=== PATIENT | male | born 1970 | race Caucasian/White ===

== ENCOUNTER 2017-11-02 09:38 | Outpatient (RCR) | payer OTHER ==
[~2017-11-02] VITALS: Ht 172.7 cm; Wt 99.8 kg
--- NOTE | 2017-11-05 15:26 | Medical Nutrition Therapy ---
Nutrition Anthropometrics Height (Inches): 68 (stated) Weight (Pounds): 220 (stated) Fritz Nutrition Score: Fritz Nutrition Risk Score: Dietary Referral Nutrition Risk Factors: Nutrition Risk Comment: Nutrition/Food History Breakfast: protein bars or starbucks setswana with amanda latte and reg melissa Lunch: burger, or chicken sand, diet pop Dinner: 12 wings, diet dosa, Mcmuffin and hashbrowns Snacks: 2 bottles reg pop in 3 weeks Nutritional Education Nutrition Education Topic: Diabetic Nutrition Learning Readiness: Interested Teaching Methods: Discussion, Handout, Demonstration Response to Teaching: Verbalize understanding Teaching Recipient: Patient Nutrition Counseling: pt states eats out usually at fast foods most days, especially for lunch. Has been cutting back and cutting out most soda since dx. Wt is down 6# from Dr office. Pt would like to continue wt loss. Reviewed glycemic response to CHO. Discussed high GI foods pt is eating and encourage higher fiber intake. Pt is doing 35 jumping jacks at work. Recommend include a cardio. Encourged pt to walk dog. Provided meal plan of 45gm CHO/meal to help with wt loss. Enouraged pt to use jeromy to check on CHO of restaurant foods. Set up behavioual goal of increased exercise and wt loss. Set up support plan. Pt will f/u with [facility] classes in November. Nutrition Monitoring & Eval RD Patient Assessment Time: [address] Assessment Type: RD Education Nutritional Comment: Provided 75 minutes diabetes education focusing on nutrition, behavioural goals and support plan Copies To Copies to: TAWNYA MARCIAL BETH Nov 02, 2017 14:53
== END 2017-12-07 ==
LOC: DIET 09:38
PROVIDERS: ATTEND Nurse Practitioner Family
DX: Z71.3 Dietary counseling and surveillance (principal); E11.9 Type 2 diabetes mellitus without complications; E78.2 Mixed hyperlipidemia
CPT/HCPCS: G0108 ×2

== ENCOUNTER 2017-12-09 08:00 | Outpatient (RCR) | payer OTHER | END 2018-01-13 | LOC: DIET 08:00 | PROVIDERS: ATTEND Nurse Practitioner Family | DX: E11.9 Type 2 diabetes mellitus without complications (principal); E78.2 Mixed hyperlipidemia | CPT/HCPCS: G0109 ==

== ENCOUNTER 2018-10-17 09:10 | Emergency (ER) | payer OTHER ==
[2018-10-17] MEDS ORDERED: PANT40TA65 (09:21)
[2018-10-17] MEDS ORDERED: SUMA100T33 (09:21)
[2018-10-17] MEDS ORDERED: RIVA20TA (09:21)
[2018-10-17] MEDS ORDERED: VENL37.594 PO (09:21)
[2018-10-17] MEDS ORDERED: HYDR-2966 (09:21)
[2018-10-17] MEDS ORDERED: VENL150C3 (09:21)
[2018-10-17] MEDS ORDERED: METO100T20 (09:21)
--- NOTE | 2018-10-17 09:31 | ER Report ---
History and Physical Time Seen By MD: 09:32 Hx. of Stated Complaint: 0800 PT FELL ON ICE AND 15 MIN AGO NOTED LARGE AREA OF SWELLING UNDER KNEE (GODFREY COLON MD) Time Seen By MD: 09:45 (NEEL COLON MD) HPI/ROS CHIEF COMPLAINT: Fall, leg pain HISTORY OF PRESENT ILLNESS: [Patient is 48-year-old male who is on xarelto for history of DVT. He presents after fall onto left lee. He notes large left lee swelling that began soon after fall and presents due to concern for pain and swelling. He has been able to ambulate, denies distal pain, paresthesias, weakness. No other injuries with fall. REVIEW OF SYSTEMS: Constitutional: No fever, no chills. Eyes: No discharge. ENT: No sore throat. Cardiovascular: No chest pain, no palpitations. Respiratory: No cough, no shortness of breath. Gastrointestinal: No abdominal pain, no vomiting Musculoskeletal: No back pain. no other injuries Skin: no lacerations Neurological: No headache. Remainder of the 14 system rev: Yes (NEEL COLON MD) Allergies: Coded Allergies: No Known Drug Allergies (Unverified , 10/17/18) Home Meds Reported Medications Sumatriptan Succinate (SUMATRIPTAN SUCCINATE) 100 Mg Tablet 10/17/18 Pantoprazole Sodium (PANTOPRAZOLE SODIUM) 40 Mg Tablet.dr 10/17/18 Metoprolol Succinate (METOPROLOL SUCCINATE) 100 Mg Tab.er.24h 10/17/18 Hydrochlorothiazide (HYDROCHLOROTHIAZIDE) 25 Mg Tablet 10/17/18 Rivaroxaban 20 Mg (XARELTO 20 MG) 20 Mg Tablet 10/17/18 Venlafaxine Hcl (VENLAFAXINE HCL ER) 150 Mg Cap.er.24h 10/17/18 Venlafaxine Hcl (EFFEXOR XR) 37.5 Mg Cap.er.24h, PO QDAY 10/17/18 Reviewed Nurses Notes: Yes (NEEL COLON MD) Hx Substance Use Disorder: No Hx Alcohol Use: Yes (OCC) (GODFREY COLON MD) Constitutional Vital Sign - Last 24 Hours 10/17/18 10/17/18 10/17/18 10/17/18 09:10 09:16 09:16 09:25 Temp 97.8 Pulse ??? 74 83 Resp 18 B/P (MAP) 147/87 (107) 147/87 Pulse Ox 91 91 O2 Delivery Room Air 10/17/18 10/17/18 10/17/18 10/17/18 09:40 09:55 10:00 10:10 Pulse 81 87 87 B/P (MAP) 121/83 (96) Pulse Ox 88 88 87 10/17/18 10/17/18 10/17/18 10/17/18 10:25 10:30 10:35 10:50 Pulse 89 ? B/P (MAP) 120/78 (92) Pulse Ox 89 10/17/18 10/17/18 10/17/18 10/17/18 11:00 11:05 11:20 11:30 Pulse ? B/P (MAP) ???/??? (1665) ???/??? (1665) 10/17/18 10/17/18 10/17/18 10/17/18 11:35 11:50 12:00 12:05 Pulse ??? 82 87 B/P (MAP) 111/87 (95) Pulse Ox 89 89 10/17/18 10/17/18 12:20 12:30 Pulse 88 B/P (MAP) 116/88 (97) Pulse Ox 90 (NEEL COLON MD) Physical Exam General Appearance: The patient is alert, has no immediate need for airway protection and no signs of toxicity. [ ] Eyes: Pupils equal and round no pallor or injection. Respiratory: There are no retractions, lungs are clear to auscultation. Cardiovascular: Regular rate and rhythm. Neurological: alert, oriented, nad Skin: Warm and dry, no rashes. Musculoskeletal: Extremities are nontender, nonswollen and have full range of motion. with execption of left ant lateral lee with [id number] edema. Ant/lat compartments soft DIFFERENTIAL DIAGNOSIS: After history and physical exam differential diagnosis was considered for compartment syndrome, fx, arterial bleed, or other complication. (NEEL COLON MD) Medical Decision Making Data Points Result Diagram: 10/17/18 1146 10/17/18 1146 Laboratory Hematology Test 10/17/18 11:46 Red Blood Count 5.49 M/uL (4.00-5.60) Mean Corpuscular Volume 88.0 fL (80.0-96.0) Mean Corpuscular Hemoglobin 30.2 pg (26.0-33.0) Mean Corpuscular Hemoglobin Concent 34.3 g/dL (32.0-36.0) Red Cell Distribution Width 13.8 % (11.5-14.5) Mean Platelet Volume 7.4 fL (7.2-11.1) Neutrophils (%) (Auto) 66.4 % (39.4-72.5) Lymphocytes (%) (Auto) 25.0 % (17.6-49.6) Monocytes (%) (Auto) 6.2 % (4.1-12.4) Eosinophils (%) (Auto) 1.4 % (0.4-6.7) Basophils (%) (Auto) 1.0 % (0.3-1.4) Nucleated RBC Relative Count (auto) 0.1 /100WBC Neutrophils # (Auto) 5.3 K/uL (2.0-7.4) Lymphocytes # (Auto) 2.0 K/uL (1.3-3.6) Monocytes # (Auto) 0.5 K/uL (0.3-1.0) Eosinophils # (Auto) 0.1 K/uL (0.0-0.5) Basophils # (Auto) 0.1 K/uL (0.0-0.1) Nucleated RBC Absolute Count (auto) 0.01 K/uL Peripheral Blood Smear No Y/N Sodium Level 139 mmol/L (137-145) Potassium Level 3.8 mmol/L (3.5-5.0) Chloride Level 103 mmol/L (98-107) Carbon Dioxide Level 28 mmol/L (22-30) Blood Urea Nitrogen 15 mg/dl (9-21) Creatinine 0.90 mg/dl (0.66-1.25) Glomerular Filtration Rate Calc > 60.0 Random Glucose 125 mg/dl (75-110) Calcium Level 9.1 mg/dl (8.4-10.2) Chemistry Test 10/17/18 11:46 White Blood Count 8.0 k/uL (4.5-11.0) Red Blood Count 5.49 M/uL (4.00-5.60) Hemoglobin 16.6 g/dL (14.0-18.0) Hematocrit 48.3 % (42.0-52.0) Mean Corpuscular Volume 88.0 fL (80.0-96.0) Mean Corpuscular Hemoglobin 30.2 pg (26.0-33.0) Mean Corpuscular Hemoglobin Concent 34.3 g/dL (32.0-36.0) Red Cell Distribution Width 13.8 % (11.5-14.5) Platelet Count 292 K/uL (150-450) Mean Platelet Volume 7.4 fL (7.2-11.1) Neutrophils (%) (Auto) 66.4 % (39.4-72.5) Lymphocytes (%) (Auto) 25.0 % (17.6-49.6) Monocytes (%) (Auto) 6.2 % (4.1-12.4) Eosinophils (%) (Auto) 1.4 % (0.4-6.7) Basophils (%) (Auto) 1.0 % (0.3-1.4) Nucleated RBC Relative Count (auto) 0.1 /100WBC Neutrophils # (Auto) 5.3 K/uL (2.0-7.4) Lymphocytes # (Auto) 2.0 K/uL (1.3-3.6) Monocytes # (Auto) 0.5 K/uL (0.3-1.0) Eosinophils # (Auto) 0.1 K/uL (0.0-0.5) Basophils # (Auto) 0.1 K/uL (0.0-0.1) Nucleated RBC Absolute Count (auto) 0.01 K/uL Peripheral Blood Smear No Y/N Glomerular Filtration Rate Calc > 60.0 Calcium Level 9.1 mg/dl (8.4-10.2) (NEEL COLON MD) ED Course/Re-evaluation ED Course Patient presents with hematoma left anterior lateral lee after direct fall early this morning (0800). Hematoma initially relatively tense, therefore blood was drawn for H and H evaluation and patient monitored in ED. Ultimately hematoma significantly improved at reevaluation at 1300. At this point there is no sign of compartment syndrome or ongoing arterial bleed. Patient is very comfortable to discharge and ambulates without discomfort. We'll discharge with strict return precautions. I recommended holding today's xarelto but continuing tomorrow. Decision to Disposition Date: Oct 17, 2018 Decision to Disposition Time: 12:56 (NEEL COLON MD) Depart Departure Latest Vital Signs Vital Signs Date Time Temp Pulse Resp B/P (MAP) Pulse Ox O2 Delivery O2 Flow Rate FiO2 10/17/18 12:30 116/88 (97) 10/17/18 12:20 88 90 10/17/18 09:16 97.8 18 Room Air (NEEL COLON MD) Impression: Primary Impression: Hematoma Condition: Improved Disposition: HOME OR SELF-CARE Referrals: TAWNYA MARCIALP (PCP) Patient Instructions: Hematoma (ED) Additional Instructions: As we discussed, please return for new significant pain, especially with moving ankle or knee, weakness, new numbness in foot, or any other concerns. GODFREY COLON MD Oct 17, 2018 09:31 NEEL COLON MD Oct 17, 2018 12:57
--- NOTE | 2018-10-17 10:47 | RADIOLOGY IMAGING REPORT ---
FACILITY: [facility] [place] PATIENT NAME: Elijah Crespo : 1970 MR: [id number] V: [id number] EXAM DATE: ORDERING PHYSICIAN: GODFREY COLON TECHNOLOGIST: Location: [facility] Patient: Elijah Crespo : 1970 Visit/Account:[id number] Date of Sevice: 10/17/2018 Exam type: KNEE 3 VIEW LEFT History: fall onto knee on Xarelto Comparison: None. Findings: There is extensive soft tissue prominence surrounding the left lower leg just below the level of the knee. This could be related to hemorrhage given the clinical history. There is no evidence of acute fracture or dislocation involving the left knee. There are mild degenerative changes at the medial compartment IMPRESSION: 1. Eccentric soft tissue prominence surrounding the left lower leg just below the level of the knee which could be related to hemorrhage given the clinical history. No underlying fracture seen Report Dictated By: Ashlee Stewart MD at 10/17/2018 10:19 AM Report E-Signed By: Ashlee Stewart MD at 10/17/2018 10:41 AM WSN:[id number]
[2018-10-17 11:54] LABS: PLATELET COUNT, AUTOMATED 292 K/uL (150-450)
[2018-10-17 12:30] VITALS: BP 116/88
== END 2018-10-17 13:07 | disposition home or self-care (01) ==
LOC: ER 09:35
DX: S80.12XA Contusion of left lower leg, initial encounter (principal); Z79.01 Long term (current) use of anticoagulants
CPT/HCPCS: 82310; 82374; 82435; 82565; 82947; 84132; 84295; 84520; 85025; 99283

== ENCOUNTER → 2019-04-12 | Outpatient (CLI) | payer OTHER ==
[~2019-04-12] MED LIST: HYDR-2966; METO100T20; PANT40TA65; RIVA20TA; SUMA100T33; VENL150C3; VENL37.594 PO
--- NOTE | 2019-04-12 09:24 | RADIOLOGY IMAGING REPORT ---
FACILITY: [facility] PATIENT NAME: Elijah Crespo : 1970 MR: [id number] V: [id number] EXAM DATE: [id number] ORDERING PHYSICIAN: TAWNYA MARCIAL TECHNOLOGIST: Location: [facility] Patient: Elijah Crespo : 1970 Visit/Account:[id number] Date of Sevice: 04/12/2019 EXAMINATION: MR SPINE CERVICAL W/O CON INDICATION: Neck pain, left arm pain COMPARISON: None available TECHNIQUE: Multiplane MR imaging was performed through the cervical spine without contrast. FINDINGS: Vertebral bodies and posterior elements: Minimal chronic C7 and T1 vertebral body wedging. Cord signal: Normal Marrow signal: 1.7 cm high signal within the T2 spinous process is isointense on T1 acquisition. Prevertebral and paraspinal soft tissues: Normal C2-3: Mild congenital canal narrowing. No disc protrusion. Mild facet arthropathy. Normal foramen. C3-4: Uncovertebral arthropathy, minimal disc protrusion. Congenitally narrowed canal. Mild canal n arrowing. Moderate bilateral foraminal narrowing. C4-5: Uncovertebral arthropathy, minimal disc protrusion, congenitally narrowed canal, mild canal cori rowing, moderate left and mild to moderate right foraminal narrowing. C5-6: Uncovertebral arthropathy, minimal disc protrusion, congenitally narrowed canal and mild canal narrowing. Moderate left and mild right foraminal narrowing. C6-7: Uncovertebral arthropathy, small disc protrusion and congenitally narrowed canal, mild canal na rrowing. Small disc protrusion noted within the left foramen. Severe bilateral foraminal narrowing. C7-T1: Normal IMPRESSION: 1. Nonspecific 1.7 cm lesion within the T2 spinous process. This is favored to represent an atypica l benign hemangioma. A metastatic or malignant lesion is felt less likely but cannot be entirely exc luded given age. Whole body bone scan may be warranted to exclude metastatic disease within the remainder of the skele ton. 2-3 month MR follow-up is recommended to document stability. 2. Mild multilevel canal narrowing secondary to congenitally narrowed canal, uncovertebral arthropat hy and disc protrusions, see level by level comments above. 3. Multilevel foraminal narrowing most pronounced at C6-7 where there is severe bilateral foraminal narrowing, see level by level comments above. Report Dictated By: Mike Vega MD at 04/12/2019 9:12 AM Report E-Signed By: Mike Vega MD at 04/12/2019 9:19 AM WSN:[id number]
== END ==
LOC: MRI 07:13
PROVIDERS: ATTEND Nurse Practitioner Family
DX: M48.02 Spinal stenosis, cervical region (principal)
CPT/HCPCS: 72141